=== PATIENT | male | born 1970 | race Caucasian/White ===

== ENCOUNTER 2023-01-26 13:21 | Emergency (ER) | payer OTHER, SELFPAY ==
[2023-01-26 13:51] VITALS: BP 132/84; PULSE 68; RESP 16; TEMP 36.7; O2SAT 98; BMI 34.0
--- NOTE | 2023-01-26 13:55 | DI.RAD.S_ITS ---
Allie BOSSEDURE: XR CHEST 2V INDICATIONS: cough x 10 days TECHNIQUE: 2 views of the chest were acquired. COMPARISON: None. FINDINGS: Surgical changes and devices: None. Lungs and pleura: Patchy left lower lobe airspace opacity. Mediastinum: Mediastinal contours are normal. Heart size is normal. Bones and chest wall: No suspicious bony abnormalities. Soft tissues appear unremarkable. IMPRESSION: Patchy left lower lobe airspace opacity. Findings concerning for infection Dictated by: Osiel Martinez M.D. on 01/26/2023 at 14:08 Approved by: Osiel Martinez M.D. on 01/26/2023 at 14:10
--- NOTE | 2023-01-26 14:15 | ED_ITS ---
HPI - URI/Sore Throat <Nicolasa Barkley PA-C - Last Filed: 01/26/23 15:37> General Chief Complaint: Upper Respiratory Symptoms Stated Complaint: poss pnemonia Time Seen by Provider: 01/26/23 13:24 Source: patient Mode of arrival: Ambulatory History of Present Illness HPI Narrative: This is a 53-year-old male who presents with concern for possible pneumonia. Patient states 10 days ago he developed body aches felt fatigued and generally unwell but had no other symptoms these resolved within 3 days and then he developed a cough which was 1st dry and nonproductive. Then by about day 5 or 6 his cough became quite severe and persistent and he began to feel short of breath after coughing and more fatigued, also states he has had a reduced appetite and generally been feeling tired, he has had some chills on and off. His cough has been productive with yellowish green sputum for the last 3-4 days. He endorses chest discomfort in the sternum area specifically with coughing that is not present otherwise. He has been drinking a lot of water but has not tried any medications for his cough. He has not had any sinus congestion or rhinorrhea. He has throat irritation with coughing. Denies fevers, nausea, vomiting, diarrhea, throat pain, ear pain, headaches or any other symptoms. Related Data Previous Rx's Medication Instructions Recorded azithromycin 250 mg tablet See Rx Instructions PO .COMPLEX 5 01/26/23 days #6 tabs benzonatate 100 mg capsule 100 mg PO TID PRN cough 10 days 01/26/23 #30 caps cefpodoxime 200 mg tablet 200 mg PO BID CAP 5 days #10 tabs 01/26/23 Allergies Allergy/AdvReac Type Severity Reaction Status Date / Time No Known Drug Allergies Allergy Verified 01/26/23 13:51 Review of Systems <Nicolasa Barkley PA-C - Last Filed: 01/26/23 15:37> Review of Systems Narrative: See HPI Patient History <Nicolasa Barkley PA-C - Last Filed: 01/26/23 15:37> Social History Smoking Status: Never smoker Smoking Status: Never smoker alcohol intake frequency: 0-2 drinks per day Substance Use Type: does not use Exam <Nicolasa Barkley PA-C - Last Filed: 01/26/23 15:37> Narrative Exam Narrative: GENERAL: 53 year old patient appears stated age. Generally fairly well- appearing. Well-developed patient, in mild distress. HEAD: Atraumatic. Normocephalic. EYES: Pupils equal round and reactive. Extraocular motions intact. No scleral icterus. No injection or drainage. ENT: Nose without bleeding, purulent drainage. Throat with mild erythema, without tonsillar hypertrophy or exudate. Airway patent. Mild lymphadenopathy tonsilar lymph nodes bilaterally. NECK: Trachea midline. Non tender CARDIOVASCULAR: Regular rate and rhythm without murmurs, gallops, or rubs. RESPIRATORY: Clear to auscultation. Left-sided rhonchi more prominent base. Very mild rhonchi right base. Good air movement bilaterally. No wheezes, rales. GASTROINTESTINAL: Abdomen nondistended. EXTREMITIES: No edema or joint tenderness. BACK: No flank tenderness. NEURO: AOx3. SKIN: No rash or erythema of visible areas Initial Vital Signs Initial Vital Signs: Vital Signs Temperature 98.1 F 01/26/23 13:51 Pulse Rate 68 01/26/23 13:51 Respiratory Rate 16 01/26/23 13:51 Blood Pressure 132/84 01/26/23 13:51 Pulse Oximetry 98 01/26/23 13:51 Oxygen Delivery Method Room Air 01/26/23 13:51 <Rui Ni DO - Last Filed: 01/26/23 15:47> Initial Vital Signs Initial Vital Signs: Vital Signs Temperature 98.1 F 01/26/23 13:51 Pulse Rate 68 01/26/23 13:51 Respiratory Rate 16 01/26/23 13:51 Blood Pressure 132/84 01/26/23 13:51 Pulse Oximetry 98 01/26/23 13:51 Oxygen Delivery Method Room Air 01/26/23 13:51 Course <Nicolasa Barkley PA-C - Last Filed: 01/26/23 15:37> Orders Ordered: ED Orders 01/26/23 13:55 XR chest 2V Stat 01/26/23 14:21 Covid-19 + FLU A/B + RSV - PCR Stat Vital Signs Vital signs: Vital Signs - 8 hr 01/26/23 13:51 01/26/23 15:37 01/26/23 15:38 Temperature 98.1 F Pulse Rate 68 65 Respiratory Rate 16 16 Blood Pressure 132/84 139/82 Pulse Oximetry 98 98 Oxygen Delivery Method Room Air Room Air <Rui Ni DO - Last Filed: 01/26/23 15:47> Orders Ordered: ED Orders 01/26/23 13:55 XR chest 2V Stat 01/26/23 14:21 Covid-19 + FLU A/B + RSV - PCR Stat Vital Signs Vital signs: Vital Signs - 8 hr 01/26/23 13:51 01/26/23 15:37 01/26/23 15:38 Temperature 98.1 F Pulse Rate 68 65 Respiratory Rate 16 16 Blood Pressure 132/84 139/82 Pulse Oximetry 98 98 Oxygen Delivery Method Room Air Room Air MDM - URI/Sore Throat <Nicolasa Barkley PA-C - Last Filed: 01/26/23 15:37> Medical Records Attestation: I reviewed the patient's medical records. Lab Data Attestation: I reviewed the patient's lab results. Labs: Lab Results 01/26/23 Range/Units 14:21 SARS-CoV-2 (PCR) Negative (Negative) Influenza A (RT-PCR) Flu a negative (NEGATIVE) Influenza B (RT-PCR) Flu b negative (NEGATIVE) RSV (PCR) Negative (Negative) Imaging Data Chest x-ray: My Impression: I agree with Radiology interpretation Radiologist's Impression: [address] [address] XRay Report Signed Patient: Alex Girard MR#: [id number] : 1970 Acct:[id number] Age/Sex: 53 / M Date of Service: 01/26/23 Loc: ED Accession Number: [id number] ?? Procedure: XR chest 2V Ordering Provider: Rui Ni D.O.? ROCEDURE:? XR CHEST 2V ? INDICATIONS:? cough x 10 days ? TECHNIQUE:? 2 views of the chest were acquired.? ? COMPARISON:? None. ? FINDINGS:? ? Surgical changes and devices:? None.? ? Lungs and pleura:? Patchy left lower lobe airspace opacity. ? Mediastinum:? Mediastinal contours are normal.? Heart size is normal.? ? Bones and chest wall:? No suspicious bony abnormalities.? Soft tissues appear unremarkable.? ? IMPRESSION:? Patchy left lower lobe airspace opacity.? Findings concerning for infection ? ? Dictated by: Osiel Martinez M.D. on 01/26/2023 at 14:08 ? ? Approved by: Osiel Martinez M.D. on 01/26/2023 at 14:10?? MDM Narrative Medical decision making narrative: This is a 53-year-old male with no significant medical history who presents with concern for possible pneumonia. Ten days of symptoms with 6 days of productive cough with fatigue reduced appetite and some intermittent chills. Patient has unremarkable vitals today, he is not toxic-appearing I have low concern for sepsis, based on exam history and vitals. Additional labs are not obtained today. Chest ray is obtained from triage which does return positive for left lower lobe pneumonia. Viral testing is also obtained today for COVID flu and RSV, these all returned negative. Given patient's persistent symptoms, productive cough, chills, reduced appetite, pneumonia seen on x-ray prescription for antibiotics today, cefpodoxime and azithromycin as well as benzonatate. Return precautions provided, follow-up plan discussed, all questions answered. <Rui Ni, DO - Last Filed: 01/26/23 15:47> Lab Data Labs: Lab Results 01/26/23 Range/Units 14:21 SARS-CoV-2 (PCR) Negative (Negative) Influenza A (RT-PCR) Flu a negative (NEGATIVE) Influenza B (RT-PCR) Flu b negative (NEGATIVE) RSV (PCR) Negative (Negative) Discharge Plan Departure Patient Disposition: Home Clinical Impression: Pneumonia Activity Restrictions/Additional Instructions: *You have been diagnosed with community-acquired pneumonia *What to do: *Please continue to take your regular medications as directed. [3] New medication prescriptions sent to your pharmacy: [2 antibiotics, azithromycin and cefpodoxime for pneumonia and benzonatate for cough] [ ] New medication written as a paper prescription [ ] No new medications given *Please follow up with your primary care provider in 2-3 days, call for an appointment. Let them know you were seen in the Emergency Department and that we ask that you be seen in follow up. We will electronically transmit a record of today's note if your PCP is in our system. Your chest x-ray showed findings consistent with a left lower lobe pneumonia, we have prescribed antibiotics for this please take the full course even if your feeling better. You can take the cough medicine as prescribed as well I recommended get plenty of rest and fluids. We did viral testing today for COVID flu a and B and RSV these came back negative. There are number of other viruses that could have initially caused your symptoms however this point we are treating you for a bacterial pneumonia. *If you do not have a primary care provider please contact the [facility] Resource line at [phone]. They will ask some questions about your medical history and help get you set up with a doctor in the community. *Return to Emergency Department if you should have any new, worsening or concerning symptoms, such as [fever greater than 101 F, shaking chills, worsening pain, persistent vomiting or other bothersome symptoms] Prescriptions: New azithromycin 250 mg tablet See Rx Instructions .ROUTE .COMPLEX 5 Days Qty: 6 0RF Rx Instructions: For 250 mg dose pack: take 500 mg today (day 1), then 250 mg for 4 days (days 2-5) cefpodoxime 200 mg tablet 200 mg PO BID 5 Days Qty: 10 0RF Rx Instructions: must administer with a meal/food benzonatate 100 mg capsule 100 mg PO TID PRN (Reason: cough) 10 Days Qty: 30 1RF Stand Alone Forms: Patient Portal/API <Rui Ni, DO - Last Filed: 01/26/23 15:47> Cosign ED Attending Cosignature Attestation: Dr Ni Co-Sign Statement: I was available for consultation during this patient's emergency department visit. This chart is signed by myself for administrative purposes only. I did not have direct contact with this patient during this visit. They were seen independently by the APC.
[2023-01-26 15:04] LABS: Influenza A - CEPHEID Flu A NEGATIVE (NEGATIVE); Influenza B - CEPHEID Flu B NEGATIVE (NEGATIVE); Respiratory Syncytial Virus Negative (Negative)
[2023-01-26 15:30] LABS: COVID-19 CEPHEID 4-PLEX PCR Negative (Negative)
[2023-01-26 15:37] VITALS: PULSE 65; RESP 16; O2SAT 98
[2023-01-26 15:38] VITALS: BP 139/82
== END 2023-01-26 15:49 | disposition home or self-care (01) ==
PROVIDERS: Emergency Provider Student in an Organized Health Care Education/Training Program
DX: J18.9 Pneumonia, unspecified organism (principal); Z20.822 Contact with and (suspected) exposure to COVID-19
CPT/HCPCS: 0241U; 71046; 99283